=== PATIENT | female | born 1945 | race Caucasian/White ===

== ENCOUNTER → 2016-05-01 | Outpatient (CLI) | payer MEDICARE ==
[~2016-05-01] MED LIST: ASPIR 8181 MG PO; ATORVASTATIN CA10 MG PO; CALCIUM 600+D1 EAC2 PO; CLARITIN10 MG PO; HYZAAR 100-12.1 EACH PO; MIRALAX17 GM PO; MOBIC15 MG PO; MULTIPLE VITAM1 EAC1 PO; NORVASC5 MG PO; NUCYNTA50 MG PO; VITAMIN D1000 UNIT PO
== END | disposition short-term general hospital (02) ==
LOC: CLORTH 07:46
DX: Z01.818 Encounter for other preprocedural examination (principal); M17.11 Unilateral primary osteoarthritis, right knee

== ENCOUNTER 2016-05-29 06:23 | Inpatient (IN) | payer MEDICARE ==
[~2016-05-29] VITALS: Ht 157.5 cm; Wt 82.1 kg
[~2016-05-29 06:23] MED LIST changes: -MIRALAX17 GM PO; -NUCYNTA50 MG PO
[2016-06-03] MEDS ORDERED: NUCYNTA50 MG PO (07:58)
[2016-06-03] MEDS ORDERED: MIRALAX17 GM PO (08:07)
== END 2016-06-03 15:10 | disposition home health service (06) | DRG 470 ==
LOC: SURG 06:23 → IP 06:23
PROVIDERS: ADMIT Family Medicine
PROC: 0SRC0J9 Replacement of Right Knee Joint with Synthetic Substitute, Cemented, Open Approach (ICD-10-PCS; principal; 2016-05-29)
PROC: 3E0F7GC Introduction of Other Therapeutic Substance into Respiratory Tract, Via Natural or Artificial Opening (ICD-10-PCS; principal; 2016-05-29)
DX: M17.11 Unilateral primary osteoarthritis, right knee (principal); D62 Acute posthemorrhagic anemia; I95.81 Postprocedural hypotension; I10 Essential (primary) hypertension; J30.9 Allergic rhinitis, unspecified; C50.919 Malignant neoplasm of unspecified site of unspecified female breast; M54.16 Radiculopathy, lumbar region; E78.01 Familial hypercholesterolemia; G47.34 Idiopathic sleep related nonobstructive alveolar hypoventilation
CPT/HCPCS: A9150; C1776; C9290; J0690; J1100; J1200; J1885; J2250; J2270; J2405; J3010; J8499

== ENCOUNTER → 2016-06-12 | Outpatient (CLI) | payer MEDICARE ==
[~2016-06-12] MED LIST changes: +MIRALAX17 GM PO; +NUCYNTA50 MG PO
== END | disposition short-term general hospital (02) ==
LOC: CLORTH 10:23
DX: Z47.1 Aftercare following joint replacement surgery (principal); Z96.651 Presence of right artificial knee joint

== ENCOUNTER → 2016-07-24 | Outpatient (CLI) | payer MEDICARE | END | disposition short-term general hospital (02) | LOC: CLORTH 07:35 | DX: Z47.1 Aftercare following joint replacement surgery (principal); Z96.651 Presence of right artificial knee joint ==